=== PATIENT | male | born 1965 | race Caucasian/White ===

== ENCOUNTER 2019-12-10 20:55 | Observation (INO) | payer OTHER ==
[~2019-12-10] VITALS: Ht 185.4 cm; Wt 93.6 kg
[2019-12-10] MEDS ORDERED: NS 1,000 ML IV ONE (22:00)
[2019-12-10 22:25] LABS: BASO # 0.1 10^3/uL (0.0-0.2); BASO % 0.6 % (0.0-1.0); EOS # 0.2 10^3/uL (0.0-0.5); EOS % 2.6 % (0.0-3.0); HEMATOCRIT 44.4 % (42.0-52.0); HEMOGLOBIN 15.6 g/dl (13.5-17.5); LYMPH # 1.9 10^3/uL (1.5-5.0); MEAN CORPUSCULAR HEMOGLOBIN 31.6 pg (27.0-33.0); MEAN CORPUSCULAR HGB CONC 35.1 g/dl (32.0-36.5); MEAN CORPUSCULAR VOLUME 89.9 fl (80.0-96.0); MONO # 0.9 10^3/uL (0.0-0.8); MONO % 10.4 % (0.0-5.0); NEUTROPHILS # 5.4 10^3/uL (1.5-8.5); NEUTROPHILS % 63.9 % (36.0-66.0); PLATELET COUNT, AUTOMATED 212 10^3/uL (150-450); RED BLOOD COUNT 4.94 10^6/uL (4.30-6.10); WHITE BLOOD COUNT 8.5 10^3/uL (4.0-10.0)
[2019-12-10 22:37] LABS: PROTHROMBIN TIME 13.4 SECONDS (11.8-14.0)
[2019-12-10 22:38] LABS: PARTIAL THROMBOPLASTIN TIME 39.2 SECONDS (25.0-38.4)
[2019-12-10 23:15] LABS: ALBUMIN 4.4 GM/DL (3.2-5.2); ALT/SGPT 31 U/L (12-78); BILIRUBIN,DIRECT 0.1 MG/DL (0.0-0.2); BILIRUBIN,TOTAL 1.2 MG/DL (0.2-1.0); BLOOD UREA NITROGEN 10 MG/DL (7-18); CALCIUM LEVEL 9.7 MG/DL (8.5-10.1); CARBON DIOXIDE LEVEL 24 MEQ/L (21-32); CHLORIDE LEVEL 109 MEQ/L (98-107); GLOMERULAR FILTRATION RATE > 60.0 (>56); GLUCOSE, FASTING 85 MG/DL (70-100); LIPASE 98 U/L (73-393); SODIUM LEVEL 141 MEQ/L (136-145); TOTAL PROTEIN 7.7 GM/DL (6.4-8.2)
[2019-12-11] MEDS ORDERED: NS 1,000 ML IV SCH (02:11)
--- NOTE | 2019-12-11 02:46 | HPEPDOC ---
[facility] Medical History & Physical Date of Admission Dec 11, 2019 Date of Service: Dec 11, 2019 History and Physical CHIEF COMPLAINT: Bloody stool HISTORY OF PRESENT ILLNESS: Patient is 54 year old male with recent history of Lyme disease s/p 4 weeks of Amoxicillin presents to the ER with complaints bloody diarrhea for 2 days. He is from [facility] but has been staying on [facility] in the [place] this summer with his family. He reported sudden onset of bloody stool diarrhea since Monday and has caused him to worry. He presented to [facility] ER and had a CT Abd/Pelvis w/ contrast which shows cholithiasis with pneumobilia ductal dilatation but otherwise no significant pathology, reportedly was told to come here as we can do colonoscopy here? Patient of note had history of bleeding in the past possibly from hemorrhoids, but he can't remember for sure and had a colonoscopy done about 10 years prior without any significant concern from what he can remember. He reports mild abdominal tenderness on the L. side and nausea at some point but otherwise no significant symptoms. No apparent fever, chills, severe abdominal discomfort or persistent nausea. He just had a bowel movement tonight which shows some blood (less blood) than before but some mucus. Of note, his sister had C. diff this summer and he reportedly drank unpurified water? ER had spoken to gen surgery, unlikely to need colonoscopy during an acute admission. Hb was reportedly at 15.1. PAST MEDICAL HISTORY: 1. Lyme disease PAST SURGICAL HISTORY: 1. C4-C5 fusion 1. Jaw surgery SOCIAL HISTORY: Moderate alcohol use Denies tobacco use Medical marijuana use FAMILY HISTORY: Mother- breast cancer, DM, MD Father- MD, CVA ALLERGIES: Please see below. REVIEW OF SYSTEMS: 10 point ROS negative except as stated above HOME MEDICATIONS: Please see below. PHYSICAL EXAMINATION: - General: Lying in bed comfortably, Speaking in full sentences, AAOx3 - HEENT: NC, AT, PERRLA - CVS: +S1S2 - Lungs: Fair air entry bilaterally, No appreciable wheezing / rales / rhonchi - Abdomen: Soft, Non-distended, mild generalized tenderness over L. sided abdomen, no guarding or rebound tenderness - Skin: no significant abnormality - Neuro: No focal motor or sensory deficit LABORATORY DATA: See below. IMAGING: CT abdomen/pelvis from outside facility - Cholelithiasis. No free pericholecystic fluid. Pneumobilia ductal dilation. - No free intraperitoneal air or fluid. No small or large bowel obstruction. - No renal calculus or hydronephrosis. - clear lung bases MICROBIOLOGY: Please see below. ASSESSMENT AND PLAN: 1. Bloody diarrhea - Improving and less blood noted tonight but does not mucus. - Sister with hx C. diff and patient recently took 4 weeks of amoxicillin for Lyme disease, c. diff is a possibility vs. other infectious etiology vs. hemorrhoids. - Continue contact isolation. - No significant leukocytosis, fever, severe abdominal discomfort to suggest severe pathology. - Will hold on giving any abx treatment at this time. - f/u GI panel. NPO at this time and monitor under observation. - Hb >15, no transfusion needed but will type and screen. - If bleeding resolves with stable Hb, patient can likely get colonoscopy as outpatient. DVT ppx: SCD, hold chemical ppx due to GI bleed Code status: Full code Vital Signs Vital Signs Date Time Temp Pulse Resp B/P (MAP) Pulse Ox O2 Delivery O2 Flow Rate FiO2 12/11/19 01:00 98.7 61 16 149/95 (113) 98 Room Air Laboratory Data Labs 24H Laboratory Tests 2 12/10/19 21:55: Immature Granulocyte % (Auto) 0.5, Neutrophils (%) (Auto) 63.9, Lymphocytes (%) (Auto) 22.0L, Monocytes (%) (Auto) 10.4H, Eosinophils (%) (Auto) 2.6, Basophils (%) (Auto) 0.6, Neutrophils # (Auto) 5.4, Lymphocytes # (Auto) 1.9, Monocytes # (Auto) 0.9H, Eosinophils # (Auto) 0.2, Basophils # (Auto) 0.1, Nucleated Red Blood Cells % (auto) 0.0, Prothrombin Time 13.4, Prothromb Time International Ratio 1.00, Activated Partial Thromboplast Time 39.2H, Anion Gap 8, Glomerular Filtration Rate > 60.0, Calcium Level 9.7, Total Bilirubin 1.2H, Direct Bilirubin 0.1, Aspartate Amino Transf (AST/SGOT) 25, Alanine Aminotransferase (ALT/SGPT) 31, Alkaline Phosphatase 66, Total Protein 7.7, Albumin 4.4, Albumin/Globulin Ratio 1.3, Lipase 98 CBC/BMP Laboratory Tests 12/10/19 21:55 Microbiology Microbiology 12/11/19 Gastrointestinal Tract Panel (PCR), Received Pending Home Medications No Active Prescriptions or Reported Meds Allergies Coded Allergies: acetaminophen (Verified Adverse Reaction, Severe, CONVULSIONS & VOMITING, 12/10/19) oxycodone (Verified Adverse Reaction, Severe, CONVULSIONS & VOMITING, 12/10/19) A-FIB/CHADSVASC A-FIB History Current/History of A-Fib/PAF?: No SHIMON WALTERS MD Dec 11, 2019 02:46
[2019-12-11 04:00] VITALS: BP 159/88
[2019-12-11] MEDS: ACETAMINOPHEN TAB 650MG DOSE (2X325MG) PO PRN ×2 (04:09→10:46)
[2019-12-11 06:00] VITALS: BP 129/68
[2019-12-11 07:17] LABS: HEMATOCRIT 39.9 % (42.0-52.0); HEMOGLOBIN 13.9 g/dl (13.5-17.5); MEAN CORPUSCULAR HEMOGLOBIN 31.7 pg (27.0-33.0); MEAN CORPUSCULAR HGB CONC 34.8 g/dl (32.0-36.5); MEAN CORPUSCULAR VOLUME 91.1 fl (80.0-96.0); PLATELET COUNT, AUTOMATED 178 10^3/uL (150-450); RED BLOOD COUNT 4.38 10^6/uL (4.30-6.10); WHITE BLOOD COUNT 7.3 10^3/uL (4.0-10.0)
[2019-12-11 07:37] LABS: BLOOD UREA NITROGEN 10 MG/DL (7-18); CALCIUM LEVEL 8.9 MG/DL (8.5-10.1); CARBON DIOXIDE LEVEL 27 MEQ/L (21-32); CHLORIDE LEVEL 110 MEQ/L (98-107); CREATININE FOR GFR 0.85 MG/DL (0.70-1.30); GLOMERULAR FILTRATION RATE > 60.0 (>56); GLUCOSE, FASTING 106 MG/DL (70-100); POTASSIUM SERUM 3.9 MEQ/L (3.5-5.1); SODIUM LEVEL 141 MEQ/L (136-145)
[2019-12-11 14:00] VITALS: BP 160/89
[2019-12-11] MEDS ORDERED: QC F0.52 PO (14:16)
--- NOTE | 2019-12-11 16:05 | DS.PDOC ---
Discharge Summary General Date of Admission Dec 11, 2019 at 02:11 Date of Discharge 12/11/2019 Primary Care Physician: A Attending Physician: TIMMY MENDZE DO Discharge Summary PROCEDURES PERFORMED DURING STAY: none ADMITTING DIAGNOSES: 1. Acute GI Bleed DISCHARGE DIAGNOSES: 1. Lower Rectal Bleed COMPLICATIONS/CHIEF COMPLAINT: Gi Bleed. HISTORY OF PRESENT ILLNESS: 54 y.o M presented with a two day history of bloody diarrhea. He noted frequent stools with bright blood in toilet but no melena. He reported having pictures on the phone and normal (non-melanous) stool was present. He reported some associated weakness and poor appetite. He denied previous such episodes. no fever or chills. D HOSPITAL COURSE: uring the hospital stay, patient was monitored for any hemodynamic instability and to rule out acute bacterial / viral etiologies. initial workup was negative. given presentation of rectal bleeding, case was reviwed with Gen surg over the p teena who recommended outpatient colonoscopy for further workup. Will recommend high fiber diet on discharge. Patient to follow up with PCP and Dr. Dorsey on discharge for colonoscopy. DISCHARGE MEDICATIONS: Please see below. ALLERGIES: Please see below. PHYSICAL EXAMINATION ON DISCHARGE: VITAL SIGNS: Please see below. GENERAL: no acute distress HEENT: normocephalic NECK: no masses CARDIOVASCULAR EXAMINATION: regular rate and rhythm RESPIRATORY EXAMINATION: no abnormalities on ausultation ABDOMINAL EXAMINATION: soft; nontender EXTREMITIES: no swelling SKIN: intact NEUROLOGICAL EXAMINATION: no focal PSYCHIATRIC EXAMINATION: normal mood LABORATORY DATA: Please see below. Vital Signs Date Time Temp Pulse Resp B/P (MAP) Pulse Ox O2 Delivery O2 Flow Rate FiO2 12/11/19 14:00 98.3 56 18 160/89 (112) 96 Room Air 12/11/19 06:00 98.7 73 18 129/68 (88) 97 Room Air 12/11/19 04:00 97.7 59 18 159/88 (111) 98 Room Air 12/11/19 01:00 98.7 61 16 149/95 (113) 98 Room Air 12/11/19 00:30 65 17 166/95 (118) 97 Room Air 12/11/19 00:00 71 18 138/85 (102) 97 Room Air 12/10/19 23:30 63 17 154/73 (100) 96 Room Air 12/10/19 23:00 58 16 151/84 (106) 96 Room Air 12/10/19 22:34 12/10/19 22:30 60 17 149/78 (101) 99 Room Air 12/10/19 22:00 56 19 143/86 (105) 99 Room Air 12/10/19 21:30 98.4 63 13 161/95 (117) 98 Room Air 12/10/19 20:56 98.5 64 18 144/85 (104) 99 Room Air Intake & Output 12/11/19 06:00 Intake Total 1000 ml Output Total 0 ml Balance 1000 ml Laboratory Tests 12/10/19 21:55: White Blood Count 8.5, Red Blood Count 4.94, Hemoglobin 15.6, Hematocrit 44.4, Mean Corpuscular Volume 89.9, Mean Corpuscular Hemoglobin 31.6, Mean Corpuscular Hemoglobin Concent 35.1, Red Cell Distribution Width 13.2, Platelet Count 212, Immature Granulocyte % (Auto) 0.5, Neutrophils (%) (Auto) 63.9, Lymphocytes (%) (Auto) 22.0L, Monocytes (%) (Auto) 10.4H, Eosinophils (%) (Auto) 2.6, Basophils (%) (Auto) 0.6, Neutrophils # (Auto) 5.4, Lymphocytes # (Auto) 1.9, Monocytes # (Auto) 0.9H, Eosinophils # (Auto) 0.2, Basophils # (Auto) 0.1, Nucleated Red Blood Cells % (auto) 0.0, Prothrombin Time 13.4, Prothromb Time International Ratio 1.00, Activated Partial Thromboplast Time 39.2H, Sodium Level 141, Potassium Level 4.0, Chloride Level 109H, Carbon Dioxide Level 24, Anion Gap 8, Blood Urea Nitrogen 10, Creatinine 0.80, Glomerular Filtration Rate > 60.0, Fasting Glucose 85, Calcium Level 9.7, Total Bilirubin 1.2H, Direct Bilirubin 0.1, Aspartate Amino Transf (AST/SGOT) 25, Alanine Aminotransferase (ALT/SGPT) 31, Alkaline Phosphatase 66, Total Protein 7.7, Albumin 4.4, Albumin/Globulin Ratio 1.3, Lipase 98 12/11/19 06:43: White Blood Count 7.3, Red Blood Count 4.38, Hemoglobin 13.9, Hematocrit 39.9L, Mean Corpuscular Volume 91.1, Mean Corpuscular Hemoglobin 31.7, Mean Corpuscular Hemoglobin Concent 34.8, Red Cell Distribution Width 13.1, Platelet Count 178, Nucleated Red Blood Cells % (auto) 0.0, Sodium Level 141, Potassium Level 3.9, C hloride Level 110H, Carbon Dioxide Level 27, Anion Gap 4L, Blood Urea Nitrogen 10, Creatinine 0.85, Glomerular Filtration Rate > 60.0, Fasting Glucose 106H, Calcium Level 8.9 Microbiology 12/11/19 Gastrointestinal Tract Panel (PCR) - Final, Complete Current Medications Medications (Trade) Dose Ordered Sig/Robreto Route PRN Reason Start Time Stop Time Status Last Admin Dose Admin Acetaminophen (Tylenol Tab) 650 mg Q6HP PRN PO PAIN / FEVER/HEADACHE 12/11/19 02:45 12/11/19 10:46 650 MG PROGNOSIS: stable ACTIVITY: as tolerated DIET: high fiber DISCHARGE PLAN: colonoscopy in 1-2 weeks outpatient DISPOSITION: home DISCHARGE INSTRUCTIONS: 1. high fiber diet ITEMS TO FOLLOWUP ON ON OUTPATIENT: 1. colonoscopy in 1-2weeks DISCHARGE CONDITION: stable TIME SPENT ON DISCHARGE: Greater than 30 minutes. Vital Signs/I&Os Vital Signs Date Time Temp Pulse Resp B/P (MAP) Pulse Ox O2 Delivery O2 Flow Rate FiO2 12/11/19 14:00 98.3 56 18 160/89 (112) 96 Room Air I&O- Last 24 Hours up to 6 AM 12/11/19 06:00 Intake Total 1000 ml Output Total 0 ml Balance 1000 ml Laboratory Data Labs 24H Laboratory Tests 2 12/10/19 21:55: Immature Granulocyte % (Auto) 0.5, Neutrophils (%) (Auto) 63.9, Lymphocytes (%) (Auto) 22.0L, Monocytes (%) (Auto) 10.4H, Eosinophils (%) (Auto) 2.6, Basophils (%) (Auto) 0.6, Neutrophils # (Auto) 5.4, Lymphocytes # (Auto) 1.9, Monocytes # (Auto) 0.9H, Eosinophils # (Auto) 0.2, Basophils # (Auto) 0.1, Nucleated Red Blood Cells % (auto) 0.0, Prothrombin Time 13.4, Prothromb Time International Ratio 1.00, Activated Partial Thromboplast Time 39.2H, Anion Gap 8, Glomerular Filtration Rate > 60.0, Calcium Level 9.7, Total Bilirubin 1.2H, Direct Bilirubin 0.1, Aspartate Amino Transf (AST/SGOT) 25, Alanine Aminotransferase (ALT/SGPT) 31, Alkaline Phosphatase 66, Total Protein 7.7, Albumin 4.4, Albumin/Globulin Ratio 1.3, Lipase 98 12/11/19 06:43: Nucleated Red Blood Cells % (auto) 0.0, Anion Gap 4L, Glomerular Filtration Rate > 60.0, Calcium Level 8.9 CBC/BMP Laboratory Tests 12/10/19 21:55 12/11/19 06:43 Microbiology Microbiology 12/11/19 Gastrointestinal Tract Panel (PCR) - Final, Complete Discharge Medications Scheduled Psyllium Husk (Fiber) 0.52 Gm Capsule, 1 CAP PO DAILY Allergies Coded Allergies: acetaminophen (Verified Adverse Reaction, Severe, CONVULSIONS & VOMITING, 12/10/19) oxycodone (Verified Adverse Reaction, Severe, CONVULSIONS & VOMITING, ) TIMMY MENDEZ DO Dec 11, 2019 16:05
== END 2019-12-11 16:30 | disposition home or self-care (01) ==
LOC: M ED 20:55 → M ED INP 20:56 → UNDOADMOB 12-11 02:11 → M ED INP 12-11 03:50 → M MS5PR 12-11 03:50 → UNDODISOB 12-11 16:30
PROVIDERS: ADMIT Student in an Organized Health Care Education/Training Program; ATTEND Student in an Organized Health Care Education/Training Program
DX: K62.5 Hemorrhage of anus and rectum (principal); R53.1 Weakness; R63.4 Abnormal weight loss; Z86.19 Personal history of other infectious and parasitic diseases; Z79.899 Other long term (current) drug therapy; Z88.5 Allergy status to narcotic agent; Z88.6 Allergy status to analgesic agent; Z83.1 Family history of other infectious and parasitic diseases